=== PATIENT | female | born 1990 | race Caucasian/White ===

== ENCOUNTER 2016-11-01 21:47 | Emergency (ER) | payer MEDICAID ==
[~2016-11-01] VITALS: Ht 154.9 cm; Wt 52.0 kg
[2016-11-01 21:50] VITALS: Ht 154.9 cm; Wt 52.0 kg
[2016-11-01] MEDS ORDERED: IBUPROFEN 600 MG TAB PO ONE (22:00)
[2016-11-01 22:04] VITALS: BP 117/78; PULSE 106; RESP 18
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
== END 2016-11-01 22:04 | disposition home or self-care (01) ==
LOC: E/R 21:47
DX: T74.21XA Adult sexual abuse, confirmed, initial encounter (principal)
CPT/HCPCS: Z7502; Z7610; 99282